=== PATIENT | female | born 1975 | race Caucasian/White ===

== ENCOUNTER 2019-01-27 09:46 | Inpatient (IN) | payer MEDICARE, MEDICAID ==
[2019-01-27] VITALS (8 sets, daily range): BP systolic 122–184; BP diastolic 84–122
[~2019-01-27] VITALS: Ht 182.9 cm; Wt 103.9 kg
[2019-01-27] MEDS ORDERED: ONDANSETRON 2MG/ML, 2ML ONE (11:19)
[2019-01-27] MEDS ORDERED: HYDROmorphone 1 MG/ML, 1ML VIAL ONE ×2 (11:19→12:52)
[2019-01-27] MEDS ORDERED: VANCOMYCIN PER PHARMACY MC ONE (11:30)
[2019-01-27] MEDS ORDERED: SODIUM CHLORIDE FLUSH 10ML SYR IVF ONE (11:30)
[2019-01-27] MEDS ORDERED: ONDANSETRON 2MG/ML, 2ML IVPush ONE (11:30)
[2019-01-27 12:05] LABS: BASOPHILS # (AUTO) 0.16 x10^3/uL (0-0.1); BASOPHILS % (AUTO) 1 % (0-1); EOSINOPHILS # (AUTO) 0.12 x10^3/uL (0-0.4); EOSINOPHILS % (AUTO) 1 % (1-7); LYMPHOCYTES # (AUTO) 1.93 x10^3/uL (1-3.4); LYMPHOCYTES % (AUTO) 14 % (22-44); MD NO; MEAN CORPUSCULAR HGB CONC 32.5 g/dL (32.4-35.8); MEAN CORPUSCULAR VOLUME 89.3 fL (80-100); MEAN PLATELET VOLUME 7.6 fL (7.4-10.4); MONOCYTES # (AUTO) 1.15 x10^3/uL (0.2-0.8); MONOCYTES % (AUTO) 9 % (2-9); NEUTROPHILS # (AUTO) 10.13 x10^3/uL (1.8-6.8); NEUTROPHILS % (AUTO) 75 % (42-75); PLATELET COUNT 352 x10^3/uL (130-400); RED BLOOD COUNT 4.68 x10^6/uL (3.82-5.3); RED CELL DISTRIBUTION WIDTH 13.7 % (9.6-15.2)
[2019-01-27 12:14] LABS: ALBUMIN 3.1 g/dL (3.4-5.0); ANION GAP 8 mmol/L (5-15); CALCIUM 8.5 mg/dL (8.5-10.1); CHLORIDE 109 mmol/L (98-107); CREATININE 0.57 mg/dL (0.55-1.02)
[2019-01-27] MEDS: HYDROmorphone 1 MG/ML, 1ML INJ IVPush PRN ×2 (12:18→13:00)
[2019-01-27] MEDS ORDERED: VANCOMYCIN PER PHARMACY MC PRN (12:30)
[2019-01-27] MEDS ORDERED: AMPICILLIN/SULBACTAM 3 GM in SODIUM CHLORIDE 0.9% 100 ML IV SCH (12:30)
[2019-01-27] MEDS: SODIUM CHLORIDE 0.9% 1,000 ML IV SCH (12:31)
--- NOTE | 2019-01-27 12:44 | NUR ---
PT C/O DENTAL PAIN, FACIAL SWELLING, AND NASAL SWELLING. FACE VISIBLY ENLARGED. RETURNED FROM CT AT THIS TIME. CALL LIGHT IN REACH, DENIES ANY FURTHER NEEDS.
--- NOTE | 2019-01-27 12:50 | NUR ---
REPORT CALLED TO HARVINDER DELGADO. PT AWAITING TRANSPORT AT THIS TIME.
[2019-01-27 12:54] LABS: HCT (SEDRATE) 41.8 % (34.6-47.8)
[2019-01-27] MEDS ORDERED: ACETAMINOPHEN 325 MG TABLET PO PRN (13:00)
[2019-01-27] MEDS ORDERED: VANCOMYCIN 2,400 MG in SODIUM CHLORIDE 0.9% 500 ML IV ONE (13:00)
[2019-01-27] MEDS ORDERED: PHARMACOKINETIC MONITORING MC PRN (13:00)
[2019-01-27] MEDS ORDERED: hydrALAzine 20 MG/ML, 1ML IVPush PRN (13:00)
[2019-01-27] MEDS ORDERED: OMNIPAQUE 350 MG/ML, 75ML BOTTLE ONE (13:24)
[2019-01-27] MEDS: NICOTINE 7 MG/24 HR PATCH.TD24 TD SCH ×2 (14:05→21:39)
[2019-01-27] MEDS: AMPICILLIN/SULBACTAM 3 GM in SODIUM CHLORIDE 0.9% 100 ML IV SCH ×2 (14:05→20:39)
[2019-01-27] MEDS: ENOXAPARIN 40 MG/0.4 ML SQ SCH (14:05)
[2019-01-27] MEDS: HYDROcodone/APAP 5/325 TABLET PO PRN ×3 (14:06→23:11)
[2019-01-27] MEDS ORDERED: MORPHINE SULFATE 4 MG/ML, 1ML IVPush PRN (14:30)
[2019-01-27] MEDS ORDERED: LABETALOL 5 MG/ML SYR. (IV ONLY) IVPush ONE (14:30)
[2019-01-27 14:41] LABS: AMPHETAMINE SCREEN, URINE Positive (Negative); BARBITURATE SCREEN, URINE Negative (Negative); BENZODIAZEPINE SCREEN, URINE Negative (Negative); CANNABINOID SCREEN, URINE Negative (Negative); COCAINE SCREEN, URINE Negative (Negative); METHADONE SCREEN, URINE Negative (Negative); OPIATE SCREEN, URINE Positive (Negative)
[2019-01-27] MEDS: HYDROmorphone 2 MG/ML, 1ML IV PRN ×2 (17:21→21:40)
[2019-01-28 00:12] VITALS: BP 122/77
[2019-01-28] MEDS: SODIUM CHLORIDE 0.9% 1,000 ML IV SCH ×2 (01:25→14:00)
[2019-01-28] MEDS: HYDROmorphone 2 MG/ML, 1ML IV PRN ×4 (01:42→20:58)
[2019-01-28] MEDS: AMPICILLIN/SULBACTAM 3 GM in SODIUM CHLORIDE 0.9% 100 ML IV SCH ×4 (02:38→20:55)
[2019-01-28] MEDS: HYDROcodone/APAP 5/325 TABLET PO PRN ×3 (03:38→18:26)
[2019-01-28] MEDS: VANCOMYCIN 1,900 MG in SODIUM CHLORIDE 0.9% 250 ML IV SCH ×2 (03:38→16:17)
[2019-01-28 04:36] LABS: BASOPHILS # (AUTO) 0.02 x10^3/uL (0-0.1); BASOPHILS % (AUTO) 0 % (0-1); EOSINOPHILS # (AUTO) 0.16 x10^3/uL (0-0.4); EOSINOPHILS % (AUTO) 2 % (1-7); LYMPHOCYTES # (AUTO) 1.73 x10^3/uL (1-3.4); LYMPHOCYTES % (AUTO) 20 % (22-44); MD NO; MEAN CORPUSCULAR HEMOGLOBIN 28.6 pg (27.0-34.8); MEAN CORPUSCULAR HGB CONC 31.7 g/dL (32.4-35.8); MEAN CORPUSCULAR VOLUME 90.2 fL (80-100); MEAN PLATELET VOLUME 7.7 fL (7.4-10.4); MONOCYTES # (AUTO) 0.82 x10^3/uL (0.2-0.8); MONOCYTES % (AUTO) 9 % (2-9); NEUTROPHILS # (AUTO) 6.05 x10^3/uL (1.8-6.8); NEUTROPHILS % (AUTO) 69 % (42-75); PLATELET COUNT 277 x10^3/uL (130-400); RED BLOOD COUNT 3.89 x10^6/uL (3.82-5.3); RED CELL DISTRIBUTION WIDTH 13.6 % (9.6-15.2)
[2019-01-28 04:43] LABS: CALCIUM 7.7 mg/dL (8.5-10.1); CHLORIDE 110 mmol/L (98-107)
[2019-01-28 04:49] LABS: ALANINE AMINOTRANSFERASE 142 U/L (12-78); ALBUMIN 2.4 g/dL (3.4-5.0); ALKALINE PHOSPHATASE 106 U/L (45-117); BILIRUBIN,TOTAL 0.4 mg/dL (0.2-1.0); CREATININE 0.58 mg/dL (0.55-1.02)
[2019-01-28 08:00] VITALS: BP 136/82
[2019-01-28] MEDS: LISINOPRIL 20 MG TABLET PO SCH (09:32)
[2019-01-28] MEDS: AMLODIPINE 5 MG TABLET PO SCH (09:32)
[2019-01-28] MEDS ORDERED: FENTANYL PF 100 MCG/2ML ONE ×4 (13:41→14:39)
[2019-01-28] MEDS ORDERED: LIDOCAINE 1%-EPI 1:100K, 20ML ONE (13:50)
[2019-01-28] MEDS ORDERED: PROMETHAZINE 25 MG/ML, 1ML IV PRN (14:00)
[2019-01-28] MEDS ORDERED: HYDROmorphone 2 MG/ML, 1ML IVPush PRN (14:00)
[2019-01-28] MEDS ORDERED: MEPERIDINE/PF 25MG/ML,1ML IVPush PRN (14:00)
[2019-01-28] MEDS ORDERED: MIDAZOLAM 1 MG/ML, 2ML IV PRN (14:00)
[2019-01-28] MEDS ORDERED: ACETAMINOPHEN 325 MG TABLET PO PRN (14:00)
[2019-01-28] MEDS ORDERED: METOPROLOL 1 MG/ML, 5ML IV PRN (14:00)
[2019-01-28] MEDS ORDERED: OXYcodone 5 MG/5 ML ORAL.SOL UDC PO PRN (14:00)
[2019-01-28] MEDS ORDERED: hydrALAzine 20 MG/ML, 1ML IV PRN (14:00)
[2019-01-28] MEDS: ENOXAPARIN 40 MG/0.4 ML SQ SCH (14:00)
[2019-01-28] MEDS ORDERED: ALBUTEROL/IPRATROPIUM 2.5MG/0.5MG, 3 ML NPPB PRN (14:00)
[2019-01-28] MEDS ORDERED: ONDANSETRON 2MG/ML, 2ML ONE (14:04)
[2019-01-28] MEDS ORDERED: PROPOFOL 10 MG/ML, 20ML ONE (14:04)
[2019-01-28] MEDS ORDERED: DEXAMETHASONE 4 MG/ML, 1ML ONE (14:04)
[2019-01-28] MEDS ORDERED: SUCCINYLCHOLINE 20 MG/ML, 10ML ONE (14:04)
[2019-01-28] MEDS ORDERED: LIDOCAINE 1%-EPI 1:100K, 20ML INFIL ONE (14:10)
[2019-01-28] MEDS: FENTANYL PF 100 MCG/2ML IV PRN ×4 (14:15→14:59)
[2019-01-28] MEDS ORDERED: OXYcodone 5 MG/5 ML ORAL.SOL UDC ONE (14:33)
[2019-01-28] MEDS ORDERED: hydrALAzine 20 MG/ML, 1ML ONE (14:53)
[2019-01-28] MEDS: CHLORHEXIDINE 15 ML UDC MM SCH (20:57)
[2019-01-28] MEDS: NICOTINE 7 MG/24 HR PATCH.TD24 TD SCH (20:57)
[2019-01-28 21:53] VITALS: BP 111/71
[2019-01-29 00:31] VITALS: BP 113/76
[2019-01-29] MEDS: HYDROcodone/APAP 5/325 TABLET PO PRN ×4 (01:43→20:08)
[2019-01-29] MEDS: AMPICILLIN/SULBACTAM 3 GM in SODIUM CHLORIDE 0.9% 100 ML IV SCH ×4 (02:39→20:08)
[2019-01-29] MEDS: SODIUM CHLORIDE 0.9% 1,000 ML IV SCH ×2 (02:39→14:27)
[2019-01-29] MEDS: VANCOMYCIN 1,900 MG in SODIUM CHLORIDE 0.9% 250 ML IV SCH ×2 (03:27→15:21)
[2019-01-29] MEDS: HYDROmorphone 2 MG/ML, 1ML IV PRN ×2 (05:52→15:21)
[2019-01-29 06:09] LABS: BASOPHILS # (AUTO) 0.03 x10^3/uL (0-0.1); BASOPHILS % (AUTO) 0 % (0-1); EOSINOPHILS # (AUTO) 0.09 x10^3/uL (0-0.4); EOSINOPHILS % (AUTO) 1 % (1-7); LYMPHOCYTES # (AUTO) 1.37 x10^3/uL (1-3.4); LYMPHOCYTES % (AUTO) 12 % (22-44); MD NO; MEAN CORPUSCULAR HEMOGLOBIN 29.1 pg (27.0-34.8); MEAN CORPUSCULAR HGB CONC 32.5 g/dL (32.4-35.8); MEAN CORPUSCULAR VOLUME 89.7 fL (80-100); MEAN PLATELET VOLUME 7.5 fL (7.4-10.4); MONOCYTES # (AUTO) 0.61 x10^3/uL (0.2-0.8); MONOCYTES % (AUTO) 6 % (2-9); NEUTROPHILS # (AUTO) 9.12 x10^3/uL (1.8-6.8); NEUTROPHILS % (AUTO) 81 % (42-75); PLATELET COUNT 307 x10^3/uL (130-400); RED BLOOD COUNT 3.91 x10^6/uL (3.82-5.3); RED CELL DISTRIBUTION WIDTH 13.7 % (9.6-15.2)
[2019-01-29 06:11] LABS: ANION GAP 7 mmol/L (5-15); CALCIUM 7.9 mg/dL (8.5-10.1); CHLORIDE 112 mmol/L (98-107); CREATININE 0.45 mg/dL (0.55-1.02)
[2019-01-29 07:34] VITALS: BP 101/65
[2019-01-29] MEDS: AMLODIPINE 5 MG TABLET PO SCH (08:52)
[2019-01-29] MEDS: LISINOPRIL 20 MG TABLET PO SCH (08:52)
[2019-01-29] MEDS: CHLORHEXIDINE 15 ML UDC MM SCH ×2 (08:52→20:08)
[2019-01-29 09:32] LABS: ALBUMIN 2.4 g/dL (3.4-5.0)
[2019-01-29 09:37] LABS: ALANINE AMINOTRANSFERASE 193 U/L (12-78); ALKALINE PHOSPHATASE 168 U/L (45-117); BILIRUBIN,TOTAL 0.5 mg/dL (0.2-1.0); TOTAL PROTEIN 5.8 g/dL (6.4-8.2)
[2019-01-29 09:44] LABS: BILIRUBIN, DIRECT < 0.1 mg/dL (0.1-0.2); BILIRUBIN,INDIRECT 0.4 mg/dL (0.0-2.0)
[2019-01-29 13:49] VITALS: BP 115/77
[2019-01-29] MEDS: ENOXAPARIN 40 MG/0.4 ML SQ SCH (14:26)
[2019-01-29] MEDS ORDERED: ONDANSETRON ODT 4 MG PO PRN (17:00)
[2019-01-29 20:35] VITALS: BP 113/67
[2019-01-30 00:58] VITALS: BP 120/68
[2019-01-30] MEDS: AMPICILLIN/SULBACTAM 3 GM in SODIUM CHLORIDE 0.9% 100 ML IV SCH ×3 (02:32→14:17)
[2019-01-30] MEDS: SODIUM CHLORIDE 0.9% 1,000 ML IV SCH ×2 (02:32→16:00)
[2019-01-30] MEDS: HYDROcodone/APAP 5/325 TABLET PO PRN ×3 (02:37→14:26)
[2019-01-30] MEDS: VANCOMYCIN 1,900 MG in SODIUM CHLORIDE 0.9% 250 ML IV SCH ×2 (04:11→16:00)
[2019-01-30 07:01] VITALS: BP 125/82
[2019-01-30] MEDS: CHLORHEXIDINE 15 ML UDC MM SCH (08:27)
[2019-01-30] MEDS: LISINOPRIL 20 MG TABLET PO SCH (08:27)
[2019-01-30] MEDS: AMLODIPINE 5 MG TABLET PO SCH (08:27)
[2019-01-30 09:44] LABS: ALANINE AMINOTRANSFERASE 123 U/L (12-78); ALBUMIN 2.2 g/dL (3.4-5.0); ANION GAP 10 mmol/L (5-15); BASOPHILS # (AUTO) 0.04 x10^3/uL (0-0.1); BASOPHILS % (AUTO) 1 % (0-1); CALCIUM 7.7 mg/dL (8.5-10.1); CHLORIDE 110 mmol/L (98-107); CREATININE 0.55 mg/dL (0.55-1.02); EOSINOPHILS # (AUTO) 0.11 x10^3/uL (0-0.4); EOSINOPHILS % (AUTO) 2 % (1-7); LYMPHOCYTES # (AUTO) 2.38 x10^3/uL (1-3.4); LYMPHOCYTES % (AUTO) 32 % (22-44); MD NO; MEAN CORPUSCULAR HEMOGLOBIN 28.5 pg (27.0-34.8); MEAN CORPUSCULAR HGB CONC 32.3 g/dL (32.4-35.8); MEAN CORPUSCULAR VOLUME 88.2 fL (80-100); MEAN PLATELET VOLUME 6.7 fL (7.4-10.4); MONOCYTES # (AUTO) 0.48 x10^3/uL (0.2-0.8); MONOCYTES % (AUTO) 6 % (2-9); NEUTROPHILS # (AUTO) 4.43 x10^3/uL (1.8-6.8); NEUTROPHILS % (AUTO) 60 % (42-75); PLATELET COUNT 315 x10^3/uL (130-400); RED CELL DISTRIBUTION WIDTH 13.4 % (9.6-15.2)
[2019-01-30 09:46] LABS: ALKALINE PHOSPHATASE 121 U/L (45-117); BILIRUBIN,TOTAL 0.2 mg/dL (0.2-1.0); TOTAL PROTEIN 5.5 g/dL (6.4-8.2)
[2019-01-30 12:41] VITALS: BP 149/87
[2019-01-30] MEDS: NICOTINE 7 MG/24 HR PATCH.TD24 TD SCH (13:00)
[2019-01-30] MEDS ORDERED: CHLO473M MM (13:15)
[2019-01-30] MEDS ORDERED: AMLO-150 PO (13:15)
[2019-01-30] MEDS ORDERED: CLIN300C8 PO (13:15)
[2019-01-30] MEDS ORDERED: ACID1TAB3 PO (13:15)
[2019-01-30] MEDS ORDERED: LISI-170 PO (13:15)
[2019-01-30] MEDS: ENOXAPARIN 40 MG/0.4 ML SQ SCH (14:00)
== END 2019-01-30 17:10 | disposition home or self-care (01) | DRG 137 ==
LOC: ED 10:57 → EDIP 12:27 → 3N 13:12
PROVIDERS: ADMIT Internal Medicine Infectious Disease; ATTEND Internal Medicine Infectious Disease
PROC: 0W930ZZ Drainage of Oral Cavity and Throat, Open Approach (ICD-10-PCS; 2019-01-28)
PROC: 0CDWXZ1 Extraction of Upper Tooth, Multiple, External Approach (ICD-10-PCS; 2019-01-28)
PROC: 0CDXXZ1 Extraction of Lower Tooth, Multiple, External Approach (ICD-10-PCS; principal; 2019-01-28 13:30)
DX: K04.7 Periapical abscess without sinus (principal); E43 Unspecified severe protein-calorie malnutrition; K12.2 Cellulitis and abscess of mouth; L03.211 Cellulitis of face; M27.2 Inflammatory conditions of jaws; F15.10 Other stimulant abuse, uncomplicated; F17.200 Nicotine dependence, unspecified, uncomplicated; A49.02 Methicillin resistant Staphylococcus aureus infection, unspecified site; I10 Essential (primary) hypertension; K02.9 Dental caries, unspecified; Z59.0 Homelessness; Z80.3 Family history of malignant neoplasm of breast; Z68.31 Body mass index [BMI] 31.0-31.9, adult
CPT/HCPCS: 36415; 70100; 70487; 76700; 80048; 80053; 80074; 80076; 80202; 80307; 82040; 83605; 85025; 85651; 86140; 87040; 87070; 87077; 87186; 87205; 96374; 96375; 96376; G0378; J0295; J1100; J1170; J1650; J2405; J2704; J3010; J3370; J3490; Q0162; Q9967; J0330; J0360; J7030; J7040; J7050

== ENCOUNTER 2019-03-17 16:05 | Emergency (ER) | payer MEDICARE ==
[~2019-03-17 16:05] MED LIST: ACID1TAB3 PO; AMLO-150 PO; CHLO473M MM; CLIN300C8 PO; LISI-170 PO
--- NOTE | 2019-03-17 16:31 | NUR ---
NOT IN LOBBY X 1 1221
--- NOTE | 2019-03-17 17:07 | NUR ---
NOT IN LOBBY X2 @ 1938
--- NOTE | 2019-03-17 17:31 | NUR ---
NO ANSWER IN LOBBY FOR THE THIRD TIME.
== END 2019-03-17 17:33 | disposition left against medical advice (07) ==
LOC: ED 17:27
DX: Z53.21 Procedure and treatment not carried out due to patient leaving prior to being seen by health care provider (principal)

== ENCOUNTER 2019-10-22 05:48 | Emergency (ER) | payer MEDICARE ==
[~2019-10-22] VITALS: Ht 182.9 cm; Wt 90.7 kg
--- NOTE | 2019-10-22 05:51 | NUR ---
pt BIB [facility] for abdominal pain, [facility] picked pt up by [facility]. pt states she was eating pepperoni aoout 8 hours ago and then started having abdominal pain. pt last BM at midnight, states she is nauseated and has thrown up when she gets "really bad pain". Reports it feels like gas pain. pt reports 10/10 pain in right upper quadrant and substernally. pt states she used meth last night because she was partying some people. pt NAD. call light on lap, given warm blankets for comfort. WCTM. pt placed on spo2/bp monitoring.
[2019-10-22] MEDS ORDERED: HALOPERIDOL 5 MG/ML IV ONE (06:00)
[2019-10-22] MEDS ORDERED: SODIUM CHLORIDE FLUSH 10ML SYR IVF ONE (06:00)
[2019-10-22] MEDS ORDERED: HALOPERIDOL 5 MG/ML ONE (06:19)
[2019-10-22 06:28] LABS: BASOPHILS # (AUTO) 0.02 x10^3/uL (0-0.1); BASOPHILS % (AUTO) 0 % (0-1); EOSINOPHILS # (AUTO) 0.02 x10^3/uL (0-0.4); EOSINOPHILS % (AUTO) 0 % (1-7); LYMPHOCYTES # (AUTO) 0.92 x10^3/uL (1-3.4); LYMPHOCYTES % (AUTO) 6 % (22-44); MD NO; MEAN CORPUSCULAR HEMOGLOBIN 28.9 pg (27.0-34.8); MEAN CORPUSCULAR VOLUME 87.4 fL (80-100); MEAN PLATELET VOLUME 7.2 fL (7.4-10.4); MONOCYTES # (AUTO) 0.58 x10^3/uL (0.2-0.8); MONOCYTES % (AUTO) 4 % (2-9); NEUTROPHILS # (AUTO) 14.83 x10^3/uL (1.8-6.8); NEUTROPHILS % (AUTO) 91 % (42-75); PLATELET COUNT 242 x10^3/uL (130-400); RED BLOOD COUNT 4.61 x10^6/uL (3.82-5.3); RED CELL DISTRIBUTION WIDTH 13.8 % (9.6-15.2)
[2019-10-22 06:39] LABS: ALBUMIN 3.5 g/dL (3.4-5.0); ANION GAP 9 mmol/L (5-15); CALCIUM 8.7 mg/dL (8.5-10.1); CHLORIDE 106 mmol/L (98-107); CREATININE 0.66 mg/dL (0.55-1.02)
[2019-10-22 06:45] LABS: ALANINE AMINOTRANSFERASE 12 U/L (12-78); ALKALINE PHOSPHATASE 72 U/L (45-117); TOTAL PROTEIN 7.1 g/dL (6.4-8.2)
--- NOTE | 2019-10-22 06:51 | NUR ---
PT MEDICATED PER MAR, APPEARS CALMER AND MORE COMFORTABLE, GIVEN WARM BLANKETS AND LIGHTS DIMMED FOR COMFORT. NAD. GABRIELA
--- NOTE | 2019-10-22 06:55 | NUR ---
REPORT TO МАРИЯ BLANTON, PT CARE TRANSFERRED AT THIS TIME.
--- NOTE | 2019-10-22 07:20 | NUR ---
PT RESTING CALMLY IN BED WITH EYES CLOSED. WILL CONTINUE TO MONITOR.
[2019-10-22] MEDS ORDERED: OMNIPAQUE 350 MG/ML, 100ML BOTTLE ONE (07:36)
--- NOTE | 2019-10-22 08:01 | NUR ---
PT ABLE TO AMBULATE STEADILY TO BATHROOM TO PROVIDE URINE SAMPLE. URINE WALKED TO LAB. PT C/O ABD PAIN. WILL MEDICATE PER EMAR.
[2019-10-22] MEDS ORDERED: KETOROLAC 30 MG/1 ML ONE (08:14)
[2019-10-22 08:15] LABS: MICROSCOPIC INDICATED
[2019-10-22] MEDS ORDERED: DICYCLOMINE 10 MG/ML, 2ML ONE (08:15)
[2019-10-22] MEDS ORDERED: KETOROLAC 30 MG/1 ML IVPush ONE (08:30)
[2019-10-22] MEDS ORDERED: DICYCLOMINE 10 MG/ML, 2ML IM ONE (08:30)
--- NOTE | 2019-10-22 08:35 | NUR ---
WENT IN TO MEDICATE PT FOR PAIN. PT RESTING CALMLY IN BED WITH EYES CLOSED. WHEN AWAKENED, PT MOANS, "OH SHIT, DAM, THE PAIN IS HORRIBLE". PT MEDICATED PER EMAR. WILL CONTINUE TO MONITOR.
[2019-10-22] MEDS ORDERED: FOSFOMYCIN 3 GM PACKET ONE (08:54)
[2019-10-22] MEDS ORDERED: FOSFOMYCIN 3 GM PACKET PO ONE (09:00)
[2019-10-22 09:16] VITALS: BP 147/90
== END 2019-10-22 09:17 | disposition home or self-care (01) ==
LOC: ED 07:12
DX: N30.00 Acute cystitis without hematuria (principal); R10.84 Generalized abdominal pain
CPT/HCPCS: 36415; 74177; 80053; 81001; 83690; 84703; 85025; 87077; 87086; 96372; 96374; 96375; 99285; J0500; J1630; J1885; Q9967; 87186

== ENCOUNTER 2020-01-12 04:31 | Emergency (ER) | payer MEDICARE, MEDICAID ==
[~2020-01-12] VITALS: Ht 182.9 cm; Wt 90.0 kg
[2020-01-12] MEDS ORDERED: SULFAMETH./TRIMETHOPRIM DS 800MG/160MG TABLET PO ONE (05:00)
[2020-01-12] MEDS ORDERED: LIDOCAINE-MPF 1%, 5ML INFIL ONE (05:00)
[2020-01-12] MEDS ORDERED: CEPHALEXIN 500 MG CAPSULE PO ONE (05:00)
[2020-01-12] MEDS ORDERED: LIDOCAINE-MPF 1%, 5ML ONE (05:15)
[2020-01-12] MEDS ORDERED: SULFAMETH./TRIMETHOPRIM DS 800MG/160MG TABLET ONE (05:27)
[2020-01-12] MEDS ORDERED: CEPHALEXIN 500 MG CAPSULE ONE (05:27)
[2020-01-12 05:41] LABS: BASOPHILS % (AUTO) 1 % (0-1); EOSINOPHILS % (AUTO) 2 % (1-7); LYMPHOCYTES % (AUTO) 23 % (22-44); MEAN CORPUSCULAR HEMOGLOBIN 28.5 pg (27.0-34.8); MEAN CORPUSCULAR HGB CONC 32.6 g/dL (32.4-35.8); MEAN PLATELET VOLUME 7.2 fL (7.4-10.4); MONOCYTES % (AUTO) 6 % (2-9); NEUTROPHILS % (AUTO) 67 % (42-75); PLATELET COUNT 306 x10^3/uL (130-400); RED CELL DISTRIBUTION WIDTH 13.8 % (9.6-15.2)
[2020-01-12 05:42] LABS: MD NO
[2020-01-12 06:05] LABS: ALBUMIN 3.4 g/dL (3.4-5.0); ANION GAP 8 mmol/L (5-15); CALCIUM 8.6 mg/dL (8.5-10.1); CHLORIDE 109 mmol/L (98-107)
[2020-01-12 06:07] LABS: CREATININE 0.66 mg/dL (0.55-1.02)
[2020-01-12 06:46] VITALS: BP 149/89
== END 2020-01-12 06:54 | disposition home or self-care (01) ==
LOC: ED 05:42
DX: L02.415 Cutaneous abscess of right lower limb (principal); M79.604 Pain in right leg
CPT/HCPCS: 10060; 36415; 80048; 82040; 83605; 85025; 87040; 99283